=== PATIENT | male | born 1935 | race Caucasian/White ===

== ENCOUNTER → 2017-11-13 | Day surgery (SDC) | payer OTHER, MEDICARE ==
[2017-11-07 13:05] VITALS: Ht 182.9 cm; Wt 104.5 kg
[~2017-11-13] VITALS: Ht 182.9 cm; Wt 104.5 kg
[~2017-11-13] MED LIST: ACET-749 PO; ASPI81TA28 PO; ATOR-24 PO; ATROPINE SULFATE 0.1 MG/ML 5ML SYR IV PRN; BCTCR/30 EXT; BUPIVACAINE 0.5 % 5 MG/1 ML MPF 30ML VIAL ONE; CYAN10005 PO; EpHEDrine SULFATE INJ 50 MG/ML AMP IV PRN; FENTANYL CITRATE INJ 50 MCG/1 ML 2 ML VIAL ONE; FINA5TAB PO; HYDR12.55 PO; KETO2SHA5 TOP; LACT12LO28 TOP; LACTATED RINGER'S 1000ML 1,000 ML IV SCH; LATA0.5S OPL; LIDOCAINE HCL 2% 2 ML VIAL (20MG/ML) ONE; LIDOCAINE HCL 2% LOCAL 20 ML VIAL ONE; MIDAZOLAM HCL 1 MG/ML 2ML VIAL ONE; PROPOFOL IV EMULSION 10 MG/ML 20 ML VIAL IV ONE; SODIUM CHLORIDE 0.9% 1000ML 1,000 ML IV SCH; TAMS0.4C38 PO; [UNRECOGNIZED DRUG - CODE] TOP
[2017-11-13] MEDS: CEFAZOLIN 2000MG IV PUSH 10 ML IV SCH ×2 (10:10→10:30)
--- NOTE | 2017-11-13 10:31 | History & Physical Bridge - [place] ---
H&P Re-Evaluation Bridge Note: I have examined the patient, reviewed the History & Physical and in the interval since the performance of the History & Physical I have noted the following changes of clinical significance: No changes noted
--- NOTE | 2017-11-13 11:21 | Discharge Instructions-SurgCtr ---
Discharge Instructions Date of Service Nov 13, 2017. Visit Reason for Visit: Left Carpal Tunnel Syndrome; Left Long & Ring Trig Discharge Discharge Diagnosis / Problem: left carpal tunnel syndrome, long and ring trigger fingers Discharge Goals Goal(s): Decrease discomfort, Improve function, Therapeutic intervention Medications Stopped Medications Name(s): Aspirin stopped a week ago. Activity Recommendations Activity Limitations: per Instructions/Follow-up section limited use of left hand Anesthesia . Post Anesthesia Instructions: If you have had General Anesthesia or IV Sedation: * Do not drive today. * Resume driving when surgeon permits. * Do not make important decisions or sign legal documents today. * Call surgeon for: 1. Temperature elevations greater than 101 degrees F. 2. Uncontrollable pain. 3. Excessive bleeding. 4. Persistent nausea and vomiting. 5. Medication intolerance (nausea, vomiting or rash). * For nausea and vomiting use only clear liquids such as: tea, soda, bouillon until nausea subsides, then gradually increase diet as tolerated. * If you have any concerns or questions, call your surgeon's office. If physician is unavailable and it is an emergency, call 911 or go to the nearest emergency room. . Instructions / Follow-Up Instructions / Follow-Up MEDICATIONS: * Resume previous medications unless instructed otherwise by your surgeon. * Always take pain medication on a full stomach or with food to avoid upset stomach. * Do not drink alcohol or drive while taking narcotics. * Ibuprofen or Tylenol may be taken if narcotic not needed. SPECIAL CARE INSTRUCTIONS: __ None _x_ Keep extremity elevated and iced x 48 hours; apply ice 20-30 minutes 8-10 times/day. May remove at night. __ Sling __24 hrs/day __ Remove at night __ Shoulder Immobilizer __ 24 hrs/day __ Remove at night _x_ Dressing _x_ Maintain until seen in office, may shower with plastic over site __ Remove dressings in 24-48 hours and then may shower __ Cover incisions with band-aids after showering __ Do not remove steri-strips Call physician if chills or temperature rises above 102 degrees or pain unrelieved by prescribed pain medications at . . follow up in 2 weeks Diet Recommendations Home Diet: resume previous diet Procedures Procedures Performed: Left Carpal Tunnel Release, Left Long And Ring Trigger Finger Releases Pending Studies Studies pending at discharge: no Medical Emergencies . Who to Call and When: Medical Emergencies: If at any time you feel your situation is an emergency, please call 911 immediately. . Non-Emergent Contact Non-Emergency issues call your: Surgeon . . "Provider Documentation" section prepared by Zach Alonso. .
--- NOTE | 2017-11-13 11:21 | [facility] Post Operative Brief Note ---
Immediate Operative Summary Operative Date Nov 13, 2017. Pre-Operative Diagnosis Left Carpal Tunnel Syndrome, Trigger Fingers of Left Long and Ring Fingers Post-Operative Diagnosis Same Procedure(s) Performed Left Carpal Tunnel Release, Left Long And Ring Trigger Finger Releases Surgeon Dr. Enriquez Bar Staff Surgeon(s) Janis Alonso PA-C Estimated Blood Loss Minimal Findings Left Carpal Tunnel Syndrome Left Long and Ring Trigger Fingers. Specimens Same Anesthesia Local with IV Sedation Complication(s) None Disposition Recovery Room / PACU
[2017-11-13 11:22] VITALS: TEMP 36.4
--- NOTE | 2017-11-13 11:31 | Anesthesia Progress Nt - [facility] ---
Anesthesia Post Op Note Date & Time Nov 13, 2017 at 11:31 Vital Signs Pain Intensity: 0 Vital Signs Past 12 Hours Date Time Temp Pulse Resp B/P (MAP) Pulse Ox O2 Delivery O2 Flow Rate FiO2 11/13/17 11:22 36.4 79 16 109/73 (85) 95 Room Air 11/13/17 09:47 36.7 81 16 146/93 (110) 95 Room Air Notes Mental Status: alert / awake / arousable, participated in evaluation Pt Amnestic to Procedure: Yes Nausea / Vomiting: adequately controlled Pain: adequately controlled Airway Patency, RR, SpO2: stable & adequate BP & HR: stable & adequate Hydration State: stable & adequate Anesthetic Complications: no major complications apparent
[2017-11-13 11:50] VITALS: BP 153/98; PULSE 74; O2SAT 95
--- NOTE | 2017-11-13 23:43 | OPERATIVE REPORT ---
DATE OF OPERATION: 11/13/2017 SURGEON: Aguilar Enriquez MD. CAMPUS MANAGER: VONNIE Bush. PREOPERATIVE DIAGNOSES: 1. Left carpal tunnel syndrome. 2. Left ring trigger finger. 3. Left long trigger finger. POSTOPERATIVE DIAGNOSIS: Same. PROCEDURE PERFORMED: 1. Left carpal tunnel release. 2. Left ring trigger finger release. 3. Left long trigger finger release. COMPLICATIONS: None. ESTIMATED BLOOD LOSS: Minimal. TOURNIQUET TIME: 10 minutes at 250 mmHg. ANESTHESIA: Local with IV sedation. OPERATIVE INDICATIONS: The patient is an 82-year-old male who has had a several year history of left hand pain, discomfort, and numbness consistent with carpal tunnel syndrome. He has been through extensive conservative treatment including 2 injections which provided some temporary relief. He continued to be bothered by the discomfort. He had nerve studies that revealed moderate carpal tunnel syndrome. He has also had triggering and locking of his left long and ring finger for several months. He elected to proceed with carpal tunnel release as well as a trigger finger releases of that long and ring fingers. OPERATIVE PROCEDURE: The patient taken to the operating room, identified and placed on the operating table in supine position. All contact areas were appropriately padded. IV antibiotics were provided by the anesthesia team. Some IV sedation was provided. The left forearm tourniquet was placed. The left hand was then cleaned with alcohol and a total of 20 mL of a 50:50 combination of 0.5% Marcaine and 2% lidocaine were then injected in and around the proposed incision site. We injected the palm as well as the base of the long and ring fingers. The left hand was then prepped and draped in the usual sterile fashion. The left arm was elevated and exsanguinated with Esmarch and tourniquet was placed at 250 mmHg. Attention was first drawn to the trigger fingers. A transverse incision was made at the base of the long and ring fingers just at the level of the distal palmar crease. I first focused on the long finger. Blunt dissection was carried out directly down the flexor tendon sheath. A1 melyssa was identified and transected with use of scissors. It was taken through an active and active assisted range of motion with no triggering or locking. Attention was then drawn to the ring finger. Blunt dissection was carried out through the subcutaneous tissues to the ring finger directly down the flexor tendon sheath. The A1 melyssa was identified and transected with the use of scissors. The finger was taken through an active and active assisted range of motion. There was no further catching or locking. Attention was then drawn to the carpal tunnel. A 2.5-3 cm incision was made in the palm just ulnar to the palmaris longus tendon. Blunt dissection was carried out through the subcutaneous tissue down to the level of the palmar fascia. The palmar fascia was incised longitudinally in line with skin incision. The underlying transverse carpal ligament was identified. It was transected distally with use of a [place] blade knife and then bluntly spread. Attention was then drawn proximally. Blunt dissection was carried out above and below the ligament proximally. The ligament was then transected for a minimum distance of 3 cm proximal to the wrist flexion crease. The ligament was bluntly spread and found to be completely released. The wound was then irrigated. The tourniquet was then let down. Hemostasis was assured with use of electrocautery. All wounds were then irrigated extensively with normal saline. The wounds were then closed with 5-0 nylon suture in a horizontal mattress fashion. The hand was then cleaned and dried and a sterile dressing of Xeroform, 4 x 4's, sterile cast padding and Remi bandage were applied. The patient then transferred to the recovery room in stable condition. The patient tolerated the procedure well with no complications. All needle and sponge counts were correct at the end of the operation. I attest to the content of the Intraoperative Record and any orders documented therein. Any exception s are noted below.
== END | disposition home or self-care (01) ==
LOC: X.SURG 09:22
PROVIDERS: ATTEND Orthopaedic Surgery Sports Medicine
DX: G56.02 Carpal tunnel syndrome, left upper limb (principal); M65.332 Trigger finger, left middle finger; M65.342 Trigger finger, left ring finger; Z98.41 Cataract extraction status, right eye; Z98.42 Cataract extraction status, left eye; Z90.89 Acquired absence of other organs; E78.00 Pure hypercholesterolemia, unspecified; I10 Essential (primary) hypertension; Z87.442 Personal history of urinary calculi; Z82.49 Family history of ischemic heart disease and other diseases of the circulatory system; Z82.3 Family history of stroke; Z80.3 Family history of malignant neoplasm of breast; Z80.6 Family history of leukemia; E66.9 Obesity, unspecified